=== PATIENT | male | born 1970 ===

== ENCOUNTER 2023-10-20 22:45 | Emergency (ER) | payer SELFPAY ==
[2023-10-20 22:48] VITALS: BP 146/95
[2023-10-20 22:56] VITALS: BMI 28.8
[2023-10-20] MEDS: PROTONIX 40 MG PO (23:05)
[2023-10-20 23:09] LABS: % Basophils 0.5 % (0-2); % Eosinophils 3.7 % (0-6); % Immature Granulocytes 0.2 % (0-0.5); % Lymphocytes 61.5 % (20.5-51.1); % Monocytes 4.6 % (1.7-9.3); % Neutrophils 29.5 % (42.2-75.2); Absolute Eosinophils 0.2 10^3/uL (0-0.7); Absolute Lymphocytes 3.6 10^3/uL (1.2-3.4); Absolute Monocytes 0.3 10^3/uL (0.1-0.6); Absolute Neutrophils 1.7 10^3/uL (1.4-6.5); Hematocrit 37.5 % (39.0-52.0); Hemoglobin 12.5 g/dL (13.0-18.0); Mean Corp Hgb Conc. 33.3 g/dL (33.0-37.0); Mean Corpuscular Hgb 27.3 pg (27.0-31.0); Mean Corpuscular Volume 81.9 fL (80.0-94.0); Mean Platelet Volume 8.4 fL (7.4-10.4); Nucleated Red Blood Cells % 0 % (-); Platelet Count 277 10^3/uL (130-400); Red Blood Cell Count 4.58 10^6/uL (4.70-6.10); Red Cell Dist. Width 13.8 % (11.5-14.5); White Blood Cell Count 5.9 10^3/uL (4.8-10.8)
--- NOTE | 2023-10-20 23:13 | ED.GENMED ---
History of Present Illness
General
Chief Complaint: Sleep Disturbances
Source: patient
Exam Limitations: none
Time Seen by Provider: 10/20/23 22:50
Travel History
Have you had any contact with someone who has COVID-19?: No
Do you have any symptoms of coronavirus? Fever > 100 degrees, chills, cough, shortness of breath, sore throat, loss of taste or smell, muscle aches, or headache?: No
History of Present Illness
History of Present Illness:
This is a 53 year old male that is brought in by police for medically clearance. States that he was just released from [facility] with gastritis. Patient then was arrested and has been brought here for medically clearance. States that he was
told that he had Gastritis. States that he has had nausea and vomiting with a headache. Denies any fever, chills, chest pain, SOB, diarrhea, dizziness, urinary burning
Past History
Past History
ED Past Medical History: Other (Gastritis)
ED Past Surgical History: None
Social History
Tobacco: Smoker
Alcohol: Occasional
Personal: Single
Living: alone
Review of Systems
Review of Systems
All Other Systems: ROS reviewed and negative except as documented in HPI and ROS
Constitutional: Reports no symptoms; Denies fever or chills
EENT: Reports no symptoms
Respiratory: Reports no symptoms; Denies cough or trouble breathing
Cardiac: Reports no symptoms; Denies chest pain
ABD/GI: Reports nausea and vomiting; Denies abdominal pain or diarrhea
: Reports no symptoms; Denies dysuria, frequency or urgency
Musculoskeletal: Reports no symptoms
Skin: Reports no symptoms
Neurological: Reports headache; Denies dizzy
Psychiatric: Reports no symptoms
Phy Exam
General Physical Exam
General Presentation: no apparent distress
General age: appears stated age
General Skin: warm and dry
General Habitus: normal
General Mental: appears intoxicated
General Hydration: appears well hydrated
ENT Exam
ENT Exam: TM's normal, pharynx normal and neck supple
Eye Exam
Eye Exam: EOMI
Cardiovascular Exam
Cardiovascular Exam: regular rate/rhythm, no edema, no murmur and normal peripheral pulses
Pulmonary Exam
Pulmonary Exam: lungs clear, no respiratory distress, no rales, chest non tender, no crackles, no rhonchi, no wheezing and no cough
Gastrointestinal Exam
Gastrointestinal Exam: normal bowel sounds, non tender, soft, no organomegaly, no pulsatile mass and non distended
Musculoskeletal Exam
Musculoskeletal Exam: full ROM and no edema
Skin Exam
Skin Exam: normal color, warm/dry, no rash and no petechia
Psychiatric Exam
Psychiatric Exam: normal mood/affect
Course
Orders/Labs/Results
Orders:
Orders
10/20/23 22:58
Pantoprazole [Protonix] 40 mg PO NOW STA
10/20/23 23:03
Alcohol Urgent
CMP [Comprehensive Metabolic Panel] Urgent
Complete Blood Count/With Diff Urgent
Lipase Urgent
Comment: ADD ON
10/20/23 23:43
Add On- LAB Urgent
Tests Added?: Lipase
Abnormal Lab Results
10/20/23
23:03
RBC 4.58 L 10^6/uL
(4.70-6.10)
Hgb 12.5 L g/dL
(13.0-18.0)
Hct 37.5 L %
(39.0-52.0)
Absolute Lymphs (auto) 3.6 H 10^3/uL
(1.2-3.4)
Neutrophils % 29.5 L %
(42.2-75.2)
Lymphocytes % 61.5 H %
(20.5-51.1)
Glucose 110 H mg/dl
(70-99)
Albumin 5.3 H g/dl
(3.5-5.0)
10/20/23 23:03
10/20/23 23:03
h/h SLIGHTLY LOW. Glucose nonfasting. Alcohol 241, Lipase 61
Vital Signs
Initial and Last Documented VS:
Initial Vital Signs
Temp Pulse Resp BP Pulse Ox
98.5 F 84 18 146/95 96
10/20/23 22:48 10/20/23 22:48 10/20/23 22:48 10/20/23 22:48 10/20/23 22:48
Last Documented Vital Signs
Temp Pulse Resp BP Pulse Ox
98.5 F 84 18 146/95 96
10/20/23 22:48 10/20/23 22:48 10/20/23 22:48 10/20/23 22:48 10/20/23 22:48
MDM/Problems Addressed
Differential Diagnosis Includes:
Alcohol abuse, Gastritis,
MDM/Problems Addressed:
This is a 53 year old male that was released from [facility] with a diagnoses of gastritis. Later he was picked up by Police. Patient is here for Medical clearance.
Will get labs and give a dose of Protonix.
Into see patient and Police. Explained that he is intoxicated otherwise his labs are normal. Will discharge
Chronic conditions affecting care:
Gastritis
Acute Exacerbation and/or Progression of Chronic Illness:
gastritis
*Pulse Oximetry
Patient hypoxic: no
*EKG
Interpreted by ED Provider?: NA
Rate: EKG- N/A
*Destaticizer Feeder Interpretation
Rate: Destaticizer Feeder- N/A
*Critical Care Note
Total Time (30-74mins, 75-104mins- exclusive of procedures): Not Applicable
ED Attending Note
-
Portions of this chart may have been created with voice recognition software.� Occasional wrong word or��sound alike� substitutions may have occurred due to the inherent limitations of voice recognition software.
Discharge Plan
Departure
Patient Disposition: Snf
Date of Disposition: 10/21/23
Time of Disposition: 00:05
Patient with high blood pressure during this ER visit?: Yes
Condition: Good
Covid-19: Not Applicable
Discharge Problem:
Medical clearance for incarceration
Instructions: Alcohol Use Disorder (DC), BLOOD PRESSURE
Prescriptions:
New
pantoprazole [Protonix] 40 mg tablet,delayed release (DR/EC)
40 mg PO DAILY Qty: 30 0RF
Referrals:
[facility] [Family Provider] -
Activity Restrictions/Additional Instructions:
As discussed, your blood work is all normal. Your Alcohol level is 241. YOUR LIPASE IS NORMAL AT 61. You have been given a prescription for Protonix that will treat your Gastritis. Follow up with the family doctor as needed. YOU ARE CLEARED FOR
INCARCERATION. RETURN WITH ANY OTHER COMPLAINTS.
Interventions
Interventions:
*Risk Screen - Suicide Last Done: 10/20/23 22:48
*General Assessment Last Done: 10/20/23 22:48
*Neglect/Abuse Screening Last Done: 10/20/23 22:48
ED- Fall Risk Assessment Last Done: 10/20/23 22:48
*ED COVID-19 Vaccine History Last Done: 10/20/23 22:48
ED- Neurological Assessment Last Done: 10/20/23 22:59
ED-Psychological Assessment Last Done: 10/20/23 22:59
ED-Suicide Risk Assessment Last Done: 10/20/23 23:00
Discharge Date and Time
Print Language: CROATIAN
[2023-10-20 23:27] LABS: ALT (SGPT) 27 U/L (0-50); AST (SGOT) 40 U/L (17-59); Albumin 5.3 g/dl (3.5-5.0); Alcohol 241 mg/dl; Alkaline Phosphatase 80 U/L (38-126); Blood Urea Nitrogen 20 mg/dl (9-20); Calcium 9.2 mg/dl (8.4-10.2); Carbon Dioxide 24 mmol/L (22-30); Chloride 106 mmol/L (98-107); Estimated Creatinine Clearance 77 ml/min; Glucose 110 mg/dl (70-99); Potassium 4.2 mmol/L (3.5-5.1); Sodium 140 mmol/L (135-145); Total Bilirubin 0.6 mg/dl (0.2-1.3); Total Protein 7.9 g/dl (6.3-8.2); eGFR > 60.00
[2023-10-21] VITALS: BP 130/77
[2023-10-21 00:01] LABS: Lipase 61 U/L (23-300)
== END 2023-10-21 00:14 ==
LOC: EMR 22:45
PROVIDERS: Clinical Nurse Specialist Family Health; EMERGENCY PHYSICIAN Student in an Organized Health Care Education/Training Program
DX: Z02.79 Encounter for issue of other medical certificate (principal); F10.129 Alcohol abuse with intoxication, unspecified; Y90.8 Blood alcohol level of 240 mg/100 ml or more; K29.70 Gastritis, unspecified, without bleeding; R11.2 Nausea with vomiting, unspecified; R51.9 Headache, unspecified; R03.0 Elevated blood-pressure reading, without diagnosis of hypertension; F17.200 Nicotine dependence, unspecified, uncomplicated
CPT/HCPCS: 99283; 80053; 82077; 83690; 85025